=== PATIENT | male | born 1990 | race Caucasian/White ===

== ENCOUNTER 2018-03-05 13:00 | Inpatient (IN) | payer OTHER ==
[2018-03-05 13:32] VITALS: BMI 38.5
[2018-03-09] MEDS ORDERED: CEFAZOLIN 2 GM/50 ML BAG ONE (08:10)
[2018-03-09] MEDS ORDERED: Sodium Chloride 0.9% 10 ML ONE (09:06)
[2018-03-09] MEDS ORDERED: Midazolam HCl 2 mg/2 ml Vial ONE ×2 (09:44→09:52)
[2018-03-09] MEDS ORDERED: Fentanyl 250 MCG/5 ML VIAL ONE (09:52)
[2018-03-09] MEDS ORDERED: SUGAMMADEX SODIUM 200 MG/2 ML VIAL ONE (11:41)
[2018-03-09] MEDS ORDERED: Fentanyl 100 MCG/2 ML VIAL ONE (11:56)
[2018-03-09] MEDS ORDERED: HYDROmorphone 2 MG/ML VIAL ONE (12:04)
[2018-03-09] MEDS ORDERED: diphenhydrAMINE 50 MG/ML VIAL IVP PRN (14:27)
[2018-03-09] MEDS ORDERED: Promethazine 25 MG TAB PO PRN (14:27)
[2018-03-09] MEDS ORDERED: Promethazine HCl 12.5 MG SUPP PR PRN (14:27)
[2018-03-09] MEDS ORDERED: Meperidine HCl/PF 25 MG/ML VIAL SLOW IVP PRN (14:27)
[2018-03-09] MEDS ORDERED: diphenhydrAMINE 25 MG CAP PO PRN (14:27)
[2018-03-09] MEDS ORDERED: Mag-Al 1200 mg/1200 mg/30 ML UDCUP PO PRN (14:27)
[2018-03-09] MEDS ORDERED: Promethazine HCl 25 MG/ML VIAL IM PRN (14:27)
[2018-03-09] MEDS ORDERED: Milk Of Magnesia 30 ML UDCUP PO PRN (14:27)
[2018-03-09] MEDS ORDERED: HYDROcodone/Acetaminophen 10/325 mg Tablet PO PRN (14:27)
[2018-03-09] MEDS ORDERED: Ondansetron PF 4 MG/2 ML Vial IVP PRN (14:34)
[2018-03-09] MEDS: Sodium Chloride 0.9% 1,000 ML IV SCH (14:48)
[2018-03-09] MEDS: CEFAZOLIN 2 GM/50 ML-DEXTROSE 2 GM in Premix Bag 1 BAG IVPB SCH ×2 (16:53→23:47)
[2018-03-09] MEDS: tiZANidine HCl 4 MG TAB PO PRN (16:53)
[2018-03-09] MEDS ORDERED: Lidocaine 1% PF 5 ML VIAL ONE (17:39)
[2018-03-09] MEDS ORDERED: PROPOFOL 200 MG/20 ML VIAL ONE (17:39)
[2018-03-09] MEDS ORDERED: ePHEDrine/0.9% NaCl/PF SYRINGE 50 mg/10 ml ONE (17:39)
[2018-03-09] MEDS ORDERED: Ondansetron PF 4 MG/2 ML Vial ONE (17:39)
[2018-03-09] MEDS ORDERED: Glycopyrrolate 0.2 MG/ML 5 ML SYRINGE ONE (17:39)
--- NOTE | 2018-03-09 19:20 | OP ---
DATE OF PROCEDURE: 03/09/2018 MANAGER OF SECURITY: Luis. PROCEDURES PERFORMED: Right L4-L5 laminectomy, facetectomy, foraminotomy, interbody arthrodesis, intervertebral biomechanical device, local morselized autograft, demineralized bone matrix, posterolateral arthrodesis, pedicle screw instrumentation, L4-L5. DESCRIPTION OF PROCEDURE: The patient was brought to the operating room and intubated. He was rolled in prone position on gel flat chest rolls. An incision was made exposing L4-L5, and the level was confirmed by x-ray. We performed a right L4-L5 laminectomy, facetectomy, and foraminotomy, and complete decompression of the neural elements. The disk itself was incised and debrided multiple fragments and the bony endplates were decorticated for the purpose of arthrodesis. An appropriate-sized intervertebral biomechanical PEEK device was brought into the field and filled with demineralized bone matrix, local morselized autograft, and tapped in place securely at L4-L5. Next, pedicle screws were placed at right L4 and right L5 using lateral fluoroscopic guidance. The leesa was secured between the screws connected by nuts, which were final tightened. The wound was extensively irrigated and maximum hemostasis was secured. A combination of demineralized bone matrix and local morselized autograft was laid over the left lamina and posterolateral surfaces for the purpose of arthrodesis. Vancomycin powder was applied and the wound was closed in anatomic layers. Job ID: [id number]
[2018-03-09] MEDS: Ketorolac Tromethamine 30 MG/ML VIAL IVP PRN (20:08)
[2018-03-09] MEDS ORDERED: Lisinopril 20 MG TAB PO PRN (21:25)
[2018-03-09] MEDS ORDERED: Dexamethasone 4 mg/ml Vial SLOW IVP SCH (21:30)
[2018-03-09 21:41] LABS: Base Excess (BEa) 0.9 mEq/L (-2.0 to +3.0); Carboxyhemoglobin (COHb) 1.6 gm% (0.0-3.0); Hemoglobin (Hb) 15.8 g/dL (14.0-18.0); O2 Tension (PaO2) 79.7 mmHg (80.0-100.0)
[2018-03-09 21:42] LABS: Calcium, Ionized 1.13 mmol/L (1.12-1.30); Potassium - ABG Lab 4.25 mmol/L (3.70-5.30)
[2018-03-09 21:43] LABS: Puncture Site RRA
[2018-03-09] MEDS: HYDROcodone/Acetaminophen 10/325 mg Tablet PO PRN (23:49)
[2018-03-10] MEDS: Ketorolac Tromethamine 30 MG/ML VIAL IVP PRN ×3 (01:46→19:50)
[2018-03-10] MEDS: tiZANidine HCl 4 MG TAB PO PRN ×3 (02:00→19:49)
[2018-03-10] MEDS: Sodium Chloride 0.9% 1,000 ML IV SCH ×2 (03:23→20:55)
[2018-03-10] MEDS: HYDROcodone/Acetaminophen 10/325 mg Tablet PO PRN ×3 (05:28→19:51)
[2018-03-10 06:13] LABS: #Monocytes 0.7 thou/uL (0.11-0.59); #Neutrophils 10.4 thou/uL (1.40-6.50); %Basophils 0.1 % (0.0-1.0); %Eosinophils 0.2 % (0.0-10.0); %Lymphocytes 8.3 % (21.0-51.0); %Monocytes 5.4 % (0.0-10.0); Hemoglobin 15.9 g/dL (14.0-18.0); Mean Corpuscular HGB CONC 33.4 g/dL (32.0-36.0); Mean Corpuscular Hemoglobin 29.9 pg (27.0-31.0); Mean Corpuscular Volume 89.5 fL (78.0-98.0); Mean Platelet Volume 8.3 fL (7.4-10.4); Platelet Count 243 thou/uL (130-400); RBC Distribution Width 11.5 % (11.5-14.5); White Blood Cell (WBC) Count 12.1 thou/uL (4.8-10.8)
[2018-03-10 06:27] LABS: Anion Gap 15 mmol/L (10-20); BUN (Urea Nitrogen) 14 mg/dL (8.9-20.6); Calc. Creatinine Clearance 169 mL/min (70-130); Calcium 9.2 mg/dL (7.8-10.44); Carbon Dioxide 21 mmol/L (22-29); Chloride 103 mmol/L (98-107); Estimated GFR-MDRD 69; Glucose 147 mg/dL (70-105); Potassium 4.1 mmol/L (3.5-5.1); Sodium 135 mmol/L (136-145)
[2018-03-10] MEDS: Pregabalin 75 MG CAP PO SCH (10:14)
[2018-03-10] MEDS ORDERED: Fluticasone Propionate Nasal Spray 16 gm Bottle NASAL SCH (17:00)
[2018-03-11] MEDS: HYDROcodone/Acetaminophen 10/325 mg Tablet PO PRN ×2 (04:34→12:49)
[2018-03-11] MEDS: tiZANidine HCl 4 MG TAB PO PRN ×2 (04:34→10:53)
[2018-03-11] MEDS: Ketorolac Tromethamine 30 MG/ML VIAL IVP PRN ×2 (04:34→09:58)
[2018-03-11] MEDS: Sodium Chloride 0.9% 1,000 ML IV SCH ×2 (06:41→10:33)
--- NOTE | 2018-03-11 08:16 | CON ---
DATE OF CONSULTATION: 03/10/2018 PRIMARY SERVICE ATTENDING: Dr. Rigo Tovar with Neurosurgical Service. PRIMARY CARE PROVIDER: [facility]. REASON FOR CONSULT: Sleep apnea. HISTORY OF PRESENT ILLNESS: This is a 28-year-old male, who was admitted under the neurosurgical service for chronic low back pain with associated radiculopathy, undergoing a right L4 and L5 laminectomy with fusion on 2017. The patient was noted with hypoxic episode postoperatively as well as overnight on 03/09/2018 with O2 saturations in the mid 70% range. The patient states he has difficulty at home with sleep apnea, but has never had a formal diagnosis or evaluation. The patient sleeps in a recliner at home, but does admit to daytime somnolence and fatigue. The patient uses [id number] nasal sprays, which he is unsure of the name of without much relief. The patient denies any known or documented allergies and states he has been on lisinopril for high blood pressure over the last 4 to 6 weeks. The patient denied any tongue or throat swelling. The patient does state he was noted with low oxygen levels after undergoing an appendectomy when he was younger. The patient denies any dysphagia, difficulty with eating or loss of appetite. The patient denies any other recent surgical intervention, sinus surgery, or tonsil removal. PAST MEDICAL HISTORY: 1. Hypertension, partially treated. 2. Suspected sleep apnea. 3. Chronic back pain. 4. Degenerative joint disease. PAST SURGICAL HISTORY: 1. Status post L4-L5 laminectomy with fusion. 2. Status post appendectomy. CURRENT MEDICATIONS: 1. Lisinopril 20 mg p.o. daily. 2. Lyrica 75 mg p.o. daily. 3. [place] 10/325 mg 1 tab p.o. t.i.d. p.r.n. pain. ALLERGIES: NKDA FAMILY HISTORY: No inheritable diseases per the patient report. SOCIAL HISTORY: The patient denies any current alcohol, tobacco, or illicit drug use. Works for [employer]. Functional of all activities of daily living. Accompanied by his in the hospital. REVIEW OF SYSTEMS: CONSTITUTIONAL: Negative for weight loss or gain, ability to conduct usual activities. SKIN: Negative for rash, itching. EYES: Negative for double vision, pain. ENT/MOUTH: Negative for nose bleeding, neck stiffness, pain, tenderness. CARDIOVASCULAR: Negative for palpitations, dyspnea on exertion, orthopnea. RESPIRATORY: Negative for shortness of breath, wheezing, cough, hemoptysis, fever or night sweats. GASTROINTESTINAL: Negative for poor appetite, abdominal pain, heartburn, nausea, vomiting, constipation, or diarrhea. GENITOURINARY: Negative for urgency, frequency, dysuria, nocturia. MUSCULOSKELETAL: Negative for pain, swelling. NEUROLOGIC/PSYCHIATRIC: Negative for anxiety, depression. ALLERGY/IMMUNOLOGIC: Negative for skin rash, bleeding tendency. Otherwise negative except as stated per HPI. PHYSICAL EXAMINATION: VITAL SIGNS: Currently, blood pressure 116/56, pulse 79, respiratory rate is 20, temperature 98.2 degrees Fahrenheit, O2 saturation 95% on room air. GENERAL APPEARANCE: This is a 28-year-old male, alert and oriented x3, pleasant, in no acute distress. HEENT: Pupils are equal, round, and reactive to light and accommodation. Extraocular muscles are intact. No scleral icterus. No conjunctival injection. Nares patent. OP is clear. Prominent uvula with peritonsillar tissue noted. Mild glossal edema noted. NECK: Soft, thick, nontender without palpable mass or thyromegaly. Cervical spine with full active and passive range of motion. No meningeal signs appreciated. CHEST: Lungs are clear to auscultation bilaterally. CARDIOVASCULAR: S1 and S2 without noted murmur, rub, or gallop. ABDOMEN: Rounded, soft, nontender, and nondistended. Bowel sounds are positive in all 4 quadrants. There is no hepatosplenomegaly, no abdominal bruits, no rebound or guarding appreciated. EXTREMITIES: Warm and dry with fair turgor. No clubbing or cyanosis, no asymmetric edema appreciated. Pulses are palpable distally at the dorsalis pedis, posterior tibial, and popliteal arteries bilaterally. Capillary refill is less than 2 seconds. NEUROLOGIC: Cranial nerves 2 through 12 are grossly intact. No focal or lateralizing signs appreciated. PERTINENT LAB AND X-RAY FINDINGS: Basic metabolic profile within normal limits. CBC showed a white blood cell count of 12.1, hemoglobin 16, hematocrit 48, platelet count 243 with 86% neutrophils. ABG dated 03/09/2018 on 4 L/minute by nasal cannula showed a pH of 7.4, pCO2 of 43, pO2 of 80, and bicarb of 26. EKG dated 2017 showed a sinus mechanism with heart rates in the 80s. Right axis deviation noted. No acute changes. ASSESSMENT AND PLAN: 1. Obstructive sleep apnea. Suspected given the patient's history and physical findings. We will trial CPAP nocturnally while hospitalized. Referral given for outpatient sleep study with Pulmonology followup. The patient may be deemed as an appropriate candidate for ENT evaluation considering redundant tissue in the upper airway. Start Flonase nasal spray daily. 2. Degenerative joint disease. See neurosurgical evaluation for management and workup. 3. Status post L4-L5 laminectomy. Postop day number #1. Pain control per Primary Surgical Team. Deep venous thrombosis prophylaxis. 4. Hypertension. We will continue serial monitoring of blood pressure. Continue lisinopril 20 mg p.o. daily. 5. Prophylaxis. SCDs while in bed. Physical therapy for mobilization and ambulation. 6. Code status is full. Surrogate medical decision maker is the patient's spouse. Thank you for the consultation. We will continue to follow with Primary Service during the hospital stay. Job ID: [id number] [facility]
[2018-03-11] MEDS ORDERED: Fluticasone Propionate Nasal Spray 16 gm Bottle NASAL SCH (09:00)
[2018-03-11] MEDS: Pregabalin 75 MG CAP PO SCH (09:07)
[2018-03-11 11:54] VITALS: BP 133/70; TEMP 97.6
--- NOTE | 2018-03-12 02:39 | DIS ---
DATE OF ADMISSION: 03/09/2018 DATE OF DISCHARGE: 03/11/2018 HOSPITAL COURSE: The patient is a 28-year-old male status post L4-L5 TLIF. Following the surgery, he was transitioned to the medical floor, where his pain was well controlled with p.o. medications, he was tolerating regular diet, and voiding appropriately. The patient has been ambulatory throughout the department with the assistance of Physical Therapy. He rested comfortably last night. Over the first night, he did develop significant sleep apnea with sats as low as 76%. He was treated with decadron and oxygen and the hospitalist was consulted. The patient was provided a CPAP machine for postoperative day #2. The patient is sitting up comfortably, awake and alert, in no acute distress. Free active range of motion of all extremities. No focal motor weakness. He has a small amount of serous drainage on the dressing. No active drainage is appreciated. We will plan to dismiss the patient to home. I have discussed home care precautions. The patient has been provided with scripts for hydrocodone, Zanaflex, and Keflex. I have advised that he call up his PCP for repeat evaluation of sleep apnea once discharged. Job ID: [id number]
== END 2018-03-11 14:14 | disposition home or self-care (01) | DRG 460 ==
LOC: SURG A 03-09 06:03 → 3SE 03-09 13:11
PROVIDERS: ADMIT Neurological Surgery; ATTEND Neurological Surgery
PROC: 0SG00AJ Fusion of Lumbar Vertebral Joint with Interbody Fusion Device, Posterior Approach, Anterior Column, Open Approach (ICD-10-PCS; principal; 2018-03-09)
PROC: 01NB0ZZ Release Lumbar Nerve, Open Approach (ICD-10-PCS; 2018-03-09)
DX: M54.16 Radiculopathy, lumbar region (principal); G89.29 Other chronic pain; R09.02 Hypoxemia; I10 Essential (primary) hypertension; M19.90 Unspecified osteoarthritis, unspecified site; G47.33 Obstructive sleep apnea (adult) (pediatric)
CPT/HCPCS: 36415; 76001; 80048; 82805; 85025; 94660; C1713; C1768; G8978-GP-CK; G8979-GP-CI; J1100; J1170; J1885; J2001; J2175; J2250; J2405; J2704; J3010; J3370; J3490

== ENCOUNTER 2018-03-05 13:07 | Outpatient (CLI) | payer OTHER ==
[2018-03-05 14:18] LABS: Hemoglobin 17.5 g/dL (14.0-18.0); Mean Corpuscular HGB CONC 35.4 g/dL (32.0-36.0); Mean Corpuscular Hemoglobin 30.9 pg (27.0-31.0); Mean Corpuscular Volume 87.2 fL (78.0-98.0); Mean Platelet Volume 8.3 fL (7.4-10.4); Platelet Count 238 thou/uL (130-400); RBC Distribution Width 11.5 % (11.5-14.5); Red Blood Cell (RBC) Count 5.67 mill/uL (4.70-6.10); White Blood Cell (WBC) Count 9.1 thou/uL (4.8-10.8)
[2018-03-05 14:40] LABS: Anion Gap 11 mmol/L (10-20); BUN (Urea Nitrogen) 13 mg/dL (8.9-20.6); Calc. Creatinine Clearance 0 mL/min (70-130); Calcium 9.5 mg/dL (7.8-10.44); Carbon Dioxide 25 mmol/L (22-29); Chloride 106 mmol/L (98-107); Estimated GFR-MDRD 78; Glucose 75 mg/dL (70-105); Potassium 3.9 mmol/L (3.5-5.1); Sodium 138 mmol/L (136-145)
--- NOTE | 2018-03-05 19:08 | EKG ---
Test Reason : Blood Pressure : / mmHG Vent. Rate : 082 BPM Atrial Rate : 082 BPM P-R Int : 178 ms QRS Dur : 104 ms QT Int : 352 ms P-R-T Axes : 058 144 026 degrees QTc Int : 411 ms Normal sinus rhythm Possible Left atrial enlargement Right axis deviation Incomplete right bundle branch block Abnormal ECG No previous ECGs available Confirmed by Géensis HILL ([id number]) on 03/05/2018 7:08:21 PM Referred By: DEMETRIO Confirmed By:Génesis HILL
== END 2018-03-05 13:08 | disposition home or self-care (01) ==
LOC: LABBT 13:07
PROVIDERS: ATTEND Neurological Surgery
DX: Z01.818 Encounter for other preprocedural examination (principal); M54.16 Radiculopathy, lumbar region
CPT/HCPCS: 80048; 85027; 93005; 93010

== ENCOUNTER 2018-03-31 16:09 | Outpatient (CLI) | payer OTHER ==
--- NOTE | 2018-03-31 18:49 | RAD ---
TWO VIEWS LUMBAR SPINE: 03/31/18 HISTORY: Patient with back pain, M54.9. AP and lateral views of the lumbar spine demonstrate right sided L4 and L5 hemifusion. Intervertebra l disc space hardware seen at the L4-5 disc space. No evidence of acute fractures or bony lesions seen. IMPRESSION: Right L4-[address] POS: [facility]
== END 2018-03-31 16:10 | disposition home or self-care (01) ==
LOC: TBSIIMAG 16:09
PROVIDERS: ATTEND Neurological Surgery
DX: M54.9 Dorsalgia, unspecified (principal); Z98.1 Arthrodesis status
CPT/HCPCS: 72100

== ENCOUNTER 2019-03-02 14:06 | Outpatient (CLI) | payer OTHER ==
--- NOTE | 2019-03-02 17:24 | MRI ---
MRI CERVICAL SPINE WITHOUT CONTRAST: 03/02/19 INDICATIONS: Neck pain. Cervical vertebrae maintain height and alignment. Disc spaces are maintained. No significant disc bulge or spondylosis at C2-3. At C3-4, mild disc bulge effaces the anterior thecal sac. Disc osteophyte complex with uncinate hyper trophy is prominent on the right which abuts the anterior cord on the right and encroaches into the r ight foramina at this level. This appears to displace the exiting right C4 nerve root. At C4-5, mild broad based disc bulge and spondylitic change efface the anterior subarachnoid space. T hese changes abut the anterior cord. No significant foraminal stenosis apparent. At C5-6, disc bulge and spondylosis abut the anterior cord. No significant foraminal stenosis althoug h there is moderate facet hypertrophy. AT C6-7 and C7-T1, no significant abnormality. Cord signal is normal. IMPRESSION: Posterior disc bulge and spondylosis at C3-4, C4-5 and C5-6 as described. POS: [facility]
--- NOTE | 2019-03-02 17:41 | MRI ---
MRI OF THE THORACIC SPINE WITHOUT CONTRAST: 03/02/19 INDICATION: Back pain. Shoulder pain. FINDINGS: The thoracic vertebrae maintain normal height and alignment. Disc spaces are normally maintained and exhibit normal hydration. There is a focal disc protrusion paracentrally on the right at C6-C7 which abuts the anterior cord on the right and mildly encroaches into the right foramina. There is a mild broad based disc bulge at T10-T11 flattening the thecal sac and effacing the anterio r subarachnoid space. Review of the thoracic cord shows some heterogeneous signal which is exacerbated by what appears to b e motion artifact. No definite cord abnormality identified. IMPRESSION: There is a focal disc protrusion paracentrally on the right at T6-T7 abutting the anterior cord on t he right. Mild disc bulge at T10-T11 as described. POS: [facility]
== END 2019-03-02 14:07 | disposition home or self-care (01) ==
LOC: TBSIIMAG 14:06
PROVIDERS: ATTEND Neurological Surgery
DX: M54.6 Pain in thoracic spine (principal); M54.2 Cervicalgia; M47.812 Spondylosis without myelopathy or radiculopathy, cervical region; M50.81 Other cervical disc disorders, high cervical region; M51.84 Other intervertebral disc disorders, thoracic region
CPT/HCPCS: 72141; 72146